=== PATIENT | female | born 1965 | race Caucasian/White ===

== ENCOUNTER → 2017-11-10 | Outpatient (CLI) | payer OTHER ==
[~2017-11-10] VITALS: Ht 158.8 cm; Wt 56.8 kg
[~2017-11-10] MED LIST: ARMOUR THYROID90 MG PO; CRUTCH1 EACH MC; ECOTRIN325 MG PO; NP THYROID90 MG PO
[2017-11-10 10:34] VITALS: BP 105/68
== END | disposition home or self-care (01) ==
LOC: IVINF 10-25 15:00
DX: M81.0 Age-related osteoporosis without current pathological fracture (principal)
CPT/HCPCS: 96365; J3489